=== PATIENT | female | born 1950 | race Caucasian/White ===

== ENCOUNTER 2017-05-14 09:39 | Outpatient (CLI) | payer MEDICARE, OTHER ==
--- NOTE | 2017-05-14 10:47 | CT ---
LOW DOSE CT SCAN OF THE LUNGS: HISTORY: Smoker for 4 to 5 years, quit 2.5 years ago. No complaints. The patient had bilateral mastectomies. FINDINGS: There are two nodules in the left upper lobe, the superior one measuring 5 mm and the inferior one me asuring 8 mm. There is an 8 mm parenchymal nodule in the left upper lobe. Superior to this is a 4 mm nodule. There is a peripheral 6 mm nodule in the right lower lobe, posteriorly. No pleural or pericardial effusions are identified. There are vascular calcifications without eviden ce of aneurysmal dilatation of the thoracic aorta. Degenerative changes are present in the spine. IMPRESSION: Lung-RADS category 4A-Suspicious. RECOMMENDATIONS: A PET CT is recommended. A follow-up LDCT should be performed in three months. CODE T POS: [facility]
== END 2017-05-14 09:40 | disposition home or self-care (01) ==
LOC: CT 09:39
PROVIDERS: ATTEND Family Medicine
DX: Z12.2 Encounter for screening for malignant neoplasm of respiratory organs (principal); Z00.00 Encounter for general adult medical examination without abnormal findings; Z87.891 Personal history of nicotine dependence
CPT/HCPCS: G0297

== ENCOUNTER 2017-06-12 09:22 | Outpatient (CLI) | payer MEDICARE, OTHER ==
--- NOTE | 2017-06-12 13:52 | PET ---
PET SCAN WITH CT ATTENUATION CORRECTION: HISTORY: Abnormal low dose screening CT. Lung nodules noted. COMPARISON: None. CORRELATION: Low dose screening CT dated 05/14/17. TECHNIQUE: PET scanning with CT attenuation correction was performed after the patient was administered 13.675 m Ci F18-FDG. FINDINGS: HEAD/NECK: There is abnormal FDG localization in the right tonsillar pillar with a maximum SUV of 5.2. There is increased FDG localization in the left thyroid lobe with a maximum SUV of 6.3 CHEST: CT used for attenuation correction does demonstrate some of the nodules noted on the low dose screeni ng CT. There is no evidence of FDG avidity. With regard to the largest nodule noted in the left and r ight upper lobes, there is no abnormal FDG localization. Both nodules have a SUV of less than 1. Note , the size of the nodules is near the imaging threshold criteria of PET imaging. ABDOMEN/PELVIS: No abnormal FDG localization. OSSEOUS STRUCTURES: No abnormal FDG localization. IMPRESSION: 1. No abnormal FDG localization of the nodules in the lung parenchyma. The largest two nodules are 8 .0 mm in size on the recent CT and do not demonstrate FDG avidity. The size of these nodules is at th e threshold for PET imaging. As recommended, follow-up CT in 3 months is recommended. 2. Increased FDG avidity in the left thyroid lobe. Left thyroid ultrasound is recommended. 3. FDG avidity in the right tonsillar pillar, submucosal in location. The possibility of a mass or l ymph node cannot be excluded. ENT consultation is recommended. POS: [facility]
== END 2017-06-12 09:23 | disposition home or self-care (01) ==
LOC: PET 09:22
PROVIDERS: ATTEND Family Medicine
DX: R91.8 Other nonspecific abnormal finding of lung field (principal); R93.8 Abnormal findings on diagnostic imaging of other specified body structures
CPT/HCPCS: 78811

== ENCOUNTER 2017-06-18 15:12 | Outpatient (CLI) | payer MEDICARE, OTHER ==
--- NOTE | 2017-06-18 15:51 | ULT ---
THYROID SONOGRAM: 06/18/17 HISTORY: Thyroid nodule. Abnormal PET scan. COMPARISON: PET scan from 06/15/14. FINDINGS: The right thyroid lobe is 3.1 cm length. Posterior to the lateral margin is an oval well circumscribe d hypoechoic lesion measuring up to 1.4 x 1.1 x 0.9 cm diameter. Left thyroid lobe is 4.2 cm with a v felicia heterogeneous echotexture but no focal mass. Isthmus is 0.7 cm. IMPRESSION: 1. Right thyroid nodule, 1.4 cm. Please consider followup thyroid sonogram in six months to eval uate for stability. 2. No focal abnormality of the left thyroid lobe are apparent where increased uptake was describ ed on recent PET scan. Further work up regarding the left lobe is not necessary, although it will be imaged on followup exam. POS: [facility]
== END 2017-06-18 15:13 | disposition home or self-care (01) ==
LOC: ULT 15:12
PROVIDERS: ATTEND Internal Medicine Hematology & Oncology
DX: E04.1 Nontoxic single thyroid nodule (principal)
CPT/HCPCS: 76536

== ENCOUNTER 2017-09-09 09:35 | Outpatient (CLI) | payer MEDICARE, OTHER ==
[2017-09-09 10:12] LABS: Estimated GFR-MDRD - POC Greater than 90
--- NOTE | 2017-09-09 12:16 | CT ---
EXAM: CT Chest with contrast HISTORY: Lung nodules COMPARISON: PET/CT 06.12.17. CT Chest 05.14.17 An 8 mm nodule left upper lobe is unchanged. The 4 mm right upper lobe nodule is seen. A 6 mm nodul e in the right lower lobe is similar. The right upper lobe previously described 8 mm nodule has decr eased in size. No new suspicious pulmonary nodules. No pneumothorax. No effusion. No adenopathy. Pulmonary trunk is markedly enlarged measuring 41 mm. No pericardial effusion. No acute osseous abnormality. No thoracic spine compression fracture. Moderate centrilobular emphysematous changes. IMPRESSION: 1. Either unchanged or decreased size multiple pulmonary nodules. 2. Marked dilatation of pulmonary arterial system, suggestive of pulmonary hypertension. 3. No acute inflammatory process in the chest. POS: [facility]
[2017-09-09] MEDS ORDERED: Iopamidol 370 76% 100 ML VIAL ONE (14:48)
== END 2017-09-09 09:36 | disposition home or self-care (01) ==
LOC: CT 09:35
PROVIDERS: ATTEND Internal Medicine Hematology & Oncology
DX: R91.1 Solitary pulmonary nodule (principal); R91.8 Other nonspecific abnormal finding of lung field; I28.1 Aneurysm of pulmonary artery; Z85.3 Personal history of malignant neoplasm of breast
CPT/HCPCS: 71260; 82565

== ENCOUNTER 2017-09-30 19:30 | Outpatient (CLI) | payer MEDICARE, OTHER | END 2017-09-30 19:31 | disposition home or self-care (01) | LOC: SLEEPLAB 19:30 | PROVIDERS: ATTEND Internal Medicine | DX: G47.33 Obstructive sleep apnea (adult) (pediatric) (principal); E66.9 Obesity, unspecified; K21.9 Gastro-esophageal reflux disease without esophagitis; G47.00 Insomnia, unspecified; R06.83 Snoring; E11.9 Type 2 diabetes mellitus without complications; I10 Essential (primary) hypertension; R35.1 Nocturia; Z68.42 Body mass index [BMI] 45.0-49.9, adult | CPT/HCPCS: 95811 ==

== ENCOUNTER 2018-03-05 12:05 | Day surgery (SDC) | payer MEDICARE, OTHER ==
[2018-03-05] MEDS ORDERED: Sodium Bicarbonate 2.5 MEQ/5 ML VIAL ONE (13:18)
[2018-03-05] MEDS ORDERED: Lidocaine 1% PF 5 ML VIAL ONE (13:18)
[2018-03-05 14:52] VITALS: BP 135/58; TEMP 98
--- NOTE | 2018-03-05 15:25 | ULT ---
ULTRASOUND GUIDED RIGHT THYROID FNA: INDICATION: Thyroid nodule, right thyroid lobe. PROCEDURE: Informed consent was obtained. The patient is escorted to the procedural suite. Preprocedural imagi ng did localize the nodule of interest within the right thyroid lobe, demonstrating solid echotexture . The right neck was then prepped and draped in standard sterile fashion. Topical anesthesia was ac hieved. After topical anesthesia with buffered 1% Lidocaine was achieved, 4 separate FNA samples usi ng 25-gauge needles were performed under real-time sonography with imaging stored for documentation. These samples were provided to the pathology department and the specimens were deemed adequate for s ubsequent interpretation. All devices were then removed from the patient. No procedural complications. The patient was discha rged in stable condition after a period of observation. IMPRESSION: Technically successful ultrasound-guided right thyroid lobe fine needle aspiration. Pathology resul ts are pending. POS: [facility]
== END 2018-03-05 14:00 | disposition home or self-care (01) ==
LOC: ULT 12:05
PROVIDERS: ATTEND Specialist
PROC: 0GBH3ZX Excision of Right Thyroid Gland Lobe, Percutaneous Approach, Diagnostic (ICD-10-PCS; principal; 2018-03-05)
DX: E04.1 Nontoxic single thyroid nodule (principal)
CPT/HCPCS: 10022; 76942; 88173; J2001

== ENCOUNTER 2018-12-14 08:55 | Outpatient (CLI) | payer MEDICARE, OTHER ==
--- NOTE | 2018-12-14 09:30 | BD ---
EXAM: DEXA bone density examination HISTORY: 68-year-old postmenopausal female for screening COMPARISON: None FINDINGS: L1--bone mineral density 0.800 g/sq cm; T score -1.7 L2--bone mineral density 0.903 g/sq cm; T score -1.1 L3--bone mineral density 0.800 g/sq cm; T score -2.6 L4--bone mineral density 0.795 g/sq cm; T score -2.4 Total L1-L4--bone mineral density 0.823 g/sq cm; T score -2.0 Left femoral neck--bone mineral density0.562; T score -2.6 Total proximal left femur--bone mineral density 0.832; T score -0.9 IMPRESSION: Osteopenia
== END 2018-12-14 08:56 | disposition home or self-care (01) ==
LOC: BICMAMMO 08:55
PROVIDERS: ATTEND Family Medicine
DX: Z13.820 Encounter for screening for osteoporosis (principal); M85.89 Other specified disorders of bone density and structure, multiple sites; Z78.0 Asymptomatic menopausal state
CPT/HCPCS: 77080

== ENCOUNTER 2020-05-29 15:44 | Emergency (ER) | payer MEDICARE, OTHER ==
--- NOTE | 2020-05-29 16:39 | RAD ---
Chest one view HISTORY: Pneumonia. COVID positive. COMPARISON: 09/09/2017. FINDINGS: Cardiac silhouette is magnified by projection. Pulmonary vasculature are unremarkable. Mediastinum is midline. Ill-defined patchy predominantly peripheral areas of groundglass infiltrate i nvolve each lung. No evidence of pneumothorax. IMPRESSION : Bilateral multifocal infiltrates. Correlate for COVID pneumonitis.
[2020-05-29 16:41] LABS: #Eosinphils 0.1 thou/uL (0.0-0.7); #Lymphocytes 1.5 thou/uL (1.20-3.40); #Monocytes 0.6 thou/uL (0.11-0.59); #Neutrophils 4.1 thou/uL (1.40-6.50); %Basophils 0.3 % (0.0-1.0); %Eosinophils 1.3 % (0.0-10.0); %Lymphocytes 23.4 % (21.0-51.0); %Monocytes 9.2 % (0.0-10.0); %Neutrophils 65.8 % (42.0-75.0); Hemoglobin 11.2 g/dL (12.0-16.0); Mean Corpuscular HGB CONC 32.6 g/dL (32.0-36.0); Mean Corpuscular Hemoglobin 28.4 pg (27.0-31.0); Mean Platelet Volume 8.3 fL (7.4-10.4); Platelet Count 236 thou/uL (130-400); RBC Distribution Width 13.2 % (11.5-14.5); Red Blood Cell (RBC) Count 3.93 mill/uL (4.20-5.40); White Blood Cell (WBC) Count 6.3 thou/uL (4.8-10.8)
[2020-05-29 17:03] LABS: ALT (SGPT) 28 U/L (8-55); AST (SGOT) 37 U/L (5-34); Albumin 3.1 g/dL (3.4-4.8); Alkaline Phosphatase 75 U/L (40-110); Anion Gap 13 mmol/L (10-20); BUN (Urea Nitrogen) 27 mg/dL (9.8-20.1); Bilirubin, Total 0.3 mg/dL (0.2-1.2); Calc. Creatinine Clearance 0 mL/min (70-130); Calcium 8.3 mg/dL (7.8-10.44); Carbon Dioxide 22 mmol/L (23-31); Chloride 107 mmol/L (98-107); Globulin 4.2 g/dL (2.4-3.5); Glucose 114 mg/dL (80-115); Potassium 4.2 mmol/L (3.5-5.1); Protein, Total 7.3 g/dL (6.0-8.3); Sodium 138 mmol/L (136-145)
--- NOTE | 2020-06-03 10:18 | EKG ---
Test Reason : EMERGENCY EXAM Blood Pressure : / mmHG Vent. Rate : 075 BPM Atrial Rate : 072 BPM P-R Int : 166 ms QRS Dur : 090 ms QT Int : 386 ms P-R-T Axes : 066 032 027 degrees QTc Int : 431 ms Undetermined rhythm Otherwise normal ECG Confirmed by MARIAELENA BERG ([id number]), newspaper copy editor XAVIER HARRINGTON ([id number]) on 06/03/2020 10:18:35 AM Referred By: Confirmed By:MARIAELENA Valencia
== END 2020-05-29 18:53 | disposition home or self-care (01) ==
LOC: ERS 15:44
DX: U07.1 COVID-19 (principal); J12.82 Pneumonia due to coronavirus disease 2019; E11.9 Type 2 diabetes mellitus without complications; E03.9 Hypothyroidism, unspecified; K21.9 Gastro-esophageal reflux disease without esophagitis; I10 Essential (primary) hypertension; E78.5 Hyperlipidemia, unspecified; F17.210 Nicotine dependence, cigarettes, uncomplicated; Z79.899 Other long term (current) drug therapy; Z79.84 Long term (current) use of oral hypoglycemic drugs
CPT/HCPCS: 36415; 71045; 80053; 84484; 85025; 93005

== ENCOUNTER 2021-10-12 10:46 | Day surgery (SDC) | payer MEDICARE, OTHER ==
[2021-10-11 10:35] VITALS: BMI 49.8
[2021-10-12] MEDS ORDERED: Lidocaine 1% PF 5 ML VIAL ONE (12:56)
[2021-10-12] MEDS ORDERED: PROPOFOL 200 MG/20 ML VIAL ONE (12:56)
== END 2021-10-12 14:20 | disposition home or self-care (01) ==
LOC: SDC 10:46
PROVIDERS: ATTEND Internal Medicine Gastroenterology
PROC: 0DBK8ZX Excision of Ascending Colon, Via Natural or Artificial Opening Endoscopic, Diagnostic (ICD-10-PCS; principal; 2021-10-12)
PROC: 0DBL8ZX Excision of Transverse Colon, Via Natural or Artificial Opening Endoscopic, Diagnostic (ICD-10-PCS; 2021-10-12)
PROC: 0DBN8ZX Excision of Sigmoid Colon, Via Natural or Artificial Opening Endoscopic, Diagnostic (ICD-10-PCS; 2021-10-12)
DX: D12.2 Benign neoplasm of ascending colon (principal); D12.3 Benign neoplasm of transverse colon; D12.5 Benign neoplasm of sigmoid colon; Q43.8 Other specified congenital malformations of intestine; J43.9 Emphysema, unspecified; K21.9 Gastro-esophageal reflux disease without esophagitis; M19.90 Unspecified osteoarthritis, unspecified site; E11.9 Type 2 diabetes mellitus without complications; I10 Essential (primary) hypertension; E78.00 Pure hypercholesterolemia, unspecified; G47.30 Sleep apnea, unspecified; Z85.3 Personal history of malignant neoplasm of breast; Z87.891 Personal history of nicotine dependence; Z79.4 Long term (current) use of insulin; Z79.82 Long term (current) use of aspirin; Z79.890 Hormone replacement therapy; Z79.899 Other long term (current) drug therapy
CPT/HCPCS: 36416; 88305; J2704

== ENCOUNTER 2022-03-20 12:17 | Emergency (ER) | payer MEDICARE, OTHER ==
[2022-03-20 13:14] LABS: #Eosinphils 0.1 thou/uL (0.0-0.7); #Lymphocytes 1.2 thou/uL (1.20-3.40); #Monocytes 0.6 thou/uL (0.11-0.59); #Neutrophils 7.8 thou/uL (1.40-6.50); %Basophils 0.4 % (0.0-1.0); %Eosinophils 1.5 % (0.0-10.0); %Monocytes 6.3 % (0.0-10.0); %Neutrophils 79.8 % (42.0-75.0); Hemoglobin 11.4 g/dL (12.0-16.0); Mean Corpuscular HGB CONC 32.1 g/dL (32.0-36.0); Mean Corpuscular Hemoglobin 28.1 pg (27.0-31.0); Mean Corpuscular Volume 87.6 fl (78.0-98.0); Mean Platelet Volume 9.7 fL (7.4-10.4); Platelet Count 160 thou/uL (130-400); RBC Distribution Width 13.8 % (11.5-14.5); Red Blood Cell (RBC) Count 4.05 mill/uL (4.20-5.40); White Blood Cell (WBC) Count 9.7 thou/uL (4.8-10.8)
[2022-03-20 13:35] LABS: ALT (SGPT) 15 U/L (8-55); AST (SGOT) 19 U/L (5-34); Albumin 3.8 g/dL (3.4-4.8); Alkaline Phosphatase 96 U/L (40-110); Anion Gap 11 mmol/L (10-20); BUN (Urea Nitrogen) 16 mg/dL (9.8-20.1); Bilirubin, Total 0.4 mg/dL (0.2-1.2); Calc. Creatinine Clearance 0 mL/min (70-130); Calcium 9.5 mg/dL (7.8-10.44); Carbon Dioxide 27 mmol/L (23-31); Chloride 105 mmol/L (98-107); Estimated GFR 80; Globulin 3.9 g/dL (2.4-3.5); Glucose 75 mg/dL (80-115); Potassium 3.9 mmol/L (3.5-5.1); Protein, Total 7.7 g/dL (5.8-8.1); Sodium 139 mmol/L (136-145)
[2022-03-20] MEDS ORDERED: Furosemide 40 MG/4 ML VIAL ONE (14:06)
== END 2022-03-20 16:06 | disposition home or self-care (01) ==
LOC: ERS 12:17
DX: R06.02 Shortness of breath (principal); E11.9 Type 2 diabetes mellitus without complications; I10 Essential (primary) hypertension; F17.210 Nicotine dependence, cigarettes, uncomplicated; Z79.899 Other long term (current) drug therapy
CPT/HCPCS: 71045; 80053; 83880; 84484; 85025; 85379; 93005; 94760; 96374; J1940

== ENCOUNTER 2023-07-29 10:17 | Outpatient (CLI) | payer MEDICARE, OTHER ==
[2023-07-29] MEDS ORDERED: Magnevist 469MG/ML 20 ML VIAL ONE (11:21)
== END 2023-07-29 10:18 | disposition home or self-care (01) ==
LOC: MRI 10:17
PROVIDERS: ATTEND Internal Medicine Cardiovascular Disease
DX: I70.1 Atherosclerosis of renal artery (principal); I73.9 Peripheral vascular disease, unspecified
CPT/HCPCS: 74183; 82565; A9579

== ENCOUNTER 2024-01-09 09:22 | Outpatient (CLI) | payer MEDICARE, OTHER | END 2024-01-09 09:23 | disposition home or self-care (01) | LOC: BICCT 09:22 | PROVIDERS: ATTEND Family Medicine | DX: Z12.2 Encounter for screening for malignant neoplasm of respiratory organs (principal); J43.9 Emphysema, unspecified; J98.4 Other disorders of lung; Z87.891 Personal history of nicotine dependence | CPT/HCPCS: 71271 ==

== ENCOUNTER 2025-04-18 12:54 | Outpatient (CLI) | payer MEDICARE | END 2025-04-18 12:55 | disposition home or self-care (01) | LOC: BICCT 12:54 | PROVIDERS: ATTEND Family Medicine | DX: Z12.2 Encounter for screening for malignant neoplasm of respiratory organs (principal); E55.9 Vitamin D deficiency, unspecified; M81.0 Age-related osteoporosis without current pathological fracture; R91.8 Other nonspecific abnormal finding of lung field; J43.2 Centrilobular emphysema; I28.1 Aneurysm of pulmonary artery; Z87.891 Personal history of nicotine dependence | CPT/HCPCS: 71271; 77080 ==